=== PATIENT | female | born 1960 | race Caucasian/White ===

== ENCOUNTER → 2021-12-06 10:51 | Outpatient (CLI) | payer BC, SELFPAY ==
--- NOTE | ~2021-12-06 | MM_ITS ---
EXAMINATION: MM screening andrea BI w sanjuana HISTORY: Screening TECHNIQUE: Craniocaudal and mediolateral oblique 3-D tomosynthesis images were obtained and synthetic 2-D images were generated. CAD analysis was submitted and interpreted. COMPARISON: No prior mammogram is available for comparison at this institution. BREAST PARENCHYMAL COMPOSITION: There are scattered areas of fibroglandular density. FINDINGS: There is no evidence of suspicious mass, calcification, or architectural distortion to sugg est malignancy in either breast. There has been no suspicious interval change. IMPRESSION: 1. No mammographic evidence of malignancy. 2. Recommend routine screening mammography in one year. BI-RADS Category 1: Negative Reviewed, dictated and finalized at location A.
--- NOTE | ~2021-12-06 | DEXA_ITS ---
Bone Density Report Name: KRISTI TERRY Age: 61 Sex: Female Ethnicity: White Date of : 1960 Indication: postmenopausal; screening for osteoporosis; height loss; prior fracture; asthma or emphysema; hysterectomy; Referring Provider: Mark, Judson Gomez Study: Bone densitometry was performed. Exam Date: December 06, 2021 Accession number: [id number] Bone Density: Region BMD T-score Z-score Classification AP Spine (L1-L4) 1.104 0.5 2.1 Normal Femoral Neck (Left) 0.656 -1.7 -0.3 Osteopenia Total Hip (Left) 0.887 -0.5 0.6 Normal Femoral Neck (Right) 0.580 -2.4 -1.0 Osteopenia Total Hip (Right) 0.847 -0.8 0.3 Normal Total Hip Mean 0.867 -0.7 0.5 Normal World Health Organization criteria for BMD impression classify patients as: Normal (T-score at or above -1.0), Osteopenia (T-score between -1.0 and -2.5), or Osteoporosis (T-score at or below -2.5). 10-year Fracture Risk(1): Major Osteoporotic Fracture 22% Hip Fracture 5.1% Reported Risk Factors: [place] (), Neck BMD=0.580, BMI=22.2, previous fracture, alcohol use (1) FRAX(R) Version 3.08. Fracture probability calculated for an untreated patient. Fracture probability may be lower if the patient has received treatment. Clinical Information Provided by Patient: Has had a low trauma fracture Has 3 or more alcoholic drinks per day Has used the following medications: Vitamin D, Calcium Has the following medical conditions: Asthma or Emphysema, Hysterectomy Patient maximum height was 63 Menopause Age: 29 No regular weight bearing exercise Drinks caffeinated beverages Onset of menses at age 12 Number of children 2 Impression: The patient has low bone mass, based on the Right Femoral Neck T-score. The patient has an estimated ten-year risk of hip fracture of 5.1% and an estimated ten-year risk of major fracture of 22%, based on the WHO FRAX algorithm. The patient has risk factors, including: excessive alcohol use, previous fracture. Discussion: BONE DENSITY IS LOW AT ONE OR MORE SKELETAL SITES. THE PATIENT'S BMD AND CLINICAL RISK FACTORS CONTRIBUTE TO THIS PATIENT'S HIGH RISK OF FRACTURE. This patient's lowest T-score is low at one or more skeletal sites. It meets the World Health Organization's (WHO) criteria for ?low bone mass? (T-score between -1.0 and -2.5). The patient's 10-year risk of hip fracture and 10 year risk of a major osteoporotic fracture as calculated by FRAX exceeds the threshold where pharmacological therapy is recommended by the National Osteoporosis Foundation (NOF). However, all treatment decisions require clinical judgment and consideration of individual patient factors, including patient preferences, comorbidities, previous drug use, risk factors not captured in the FRAX model (e.g., frailty, falls, vitamin D deficienc
== END ==
PROVIDERS: Visit Provider Internal Medicine
DX: Z12.31 Encounter for screening mammogram for malignant neoplasm of breast (principal); M85.852 Other specified disorders of bone density and structure, left thigh; Z13.820 Encounter for screening for osteoporosis; M85.851 Other specified disorders of bone density and structure, right thigh; I73.00 Raynaud's syndrome without gangrene; L40.53 Psoriatic spondylitis
CPT/HCPCS: 77063; 77067; 77080

== ENCOUNTER 2025-03-23 10:14 | Outpatient (CLI) | payer BC, SELFPAY ==
--- NOTE | ~2025-03-23 | DEXA_ITS ---
Bone Density Report Name: KRISTI TERRY Age: 65 Sex: Female Ethnicity: White Date of : 1960 Indication: monitoring treatment; cancer; hysterectomy; Referring Provider: CHUCK YOON Study: Bone densitometry was performed. Exam Date: March 23, 2025 Accession number: [id number] Bone Density: Region BMD T-score Z-score Classification AP Spine(L1, L2, L3) 0.997 -0.2 1.6 Normal Femoral Neck (Left) 0.683 -1.5 0.1 Osteopenia Total Hip (Left) 0.823 -1.0 0.3 Normal Femoral Neck (Right) 0.593 -2.3 -0.7 Osteopenia Total Hip (Right) 0.773 -1.4 -0.1 Osteopenia Total Hip Mean 0.798 -1.2 0.1 Osteopenia World Health Organization criteria for BMD impression classify patients as: Normal (T-score at or above -1.0), Osteopenia (T-score between -1.0 and -2.5), or Osteoporosis (T-score at or below -2.5). 10-year Fracture Risk: FRAX not reported because: Treated for osteoporosis Previous Exams: -- Region Exam Age BMD T-score BMD Change BMD Change Date g/cm2 vs Baseline vs Previous -- AP Spine (L1-L3) 03/23/2025 65 0.997 -0.2 -4.4%* -4.4%* 12/06/2021 61 1.043 0.2 Total Hip(Left) 03/23/2025 65 0.823 -1.0 -7.2%* -7.2%* 12/06/2021 61 0.887 -0.5 Total Hip(Right) 03/23/2025 65 0.773 -1.4 -8.8%* -8.8%* 12/06/2021 61 0.847 -0.8 -- *Denotes significance at 95% confidence level, LSC for AP Spine = 0.022 g/cm2, LSC for Total Hip = 0.027 g/cm2 Clinical Information Provided by Patient: Is being treated for osteoporosis Has used the following medications: HRT (i.e. estrogen/hormone therapy), Vitamin D Has the following medical conditions: Cancer, Hysterectomy, squamous cell and basal cell cancer Patient maximum height was 62 Menopause Age: 29 No regular weight bearing exercise Drinks caffeinated beverages Onset of menses at age 12 Number of children 2 Impression: The patient has low bone mass, based on the Right Femoral Neck T-score. The BMD for the AP Spine (L1-L3) decreased, changing by -4.4% since the last DXA exam. The BMD for the Total Hip(Left) decreased, changing by -7.2% since the last DXA exam. The BMD for the Total Hip(Right) decreased, changing by -8.8% since the last DXA exam. Discussion: SIGNIFICANT BONE LOSS OBSERVED. Adherence to therapy (including calcium and vitamin D intake) should be assessed. If compliance is not a factor, review management and exclusion of secondary causes of bone loss. It is important to ask patients whether they are taking their medications and to encourage continued and appropriate compliance with their osteoporosis therapies to reduce fracture risk. It is also important to review their risk factors and encourage appropriate calcium and vitamin D intakes, exercise, fall prevention and other lifestyle measures. Follow-Up: Consider a repeat BMD and Vertebral Fracture Assessment (VFA) exam in 2 years or sooner if medically necessary, to reassess this patient's status. Reported by: SANCHEZ on 03/23/2025 10:48:00 AM. Reviewed, dictated and finalized at location A.
== END 2025-03-23 10:15 | disposition home or self-care (01) ==
LOC: MICIMG 10:17
PROVIDERS: PCP Physician Assistant; Visit Provider Physician Assistant
DX: M81.0 Age-related osteoporosis without current pathological fracture (principal); M85.89 Other specified disorders of bone density and structure, multiple sites
CPT/HCPCS: 77080